=== PATIENT | female | born 1955 | race Caucasian/White ===

== ENCOUNTER 2019-04-23 08:08 | Emergency (ER) | payer BC ==
[2019-04-23] MEDS: SOD CHLORIDE 0.9% 100 ML (10:18)
[2019-04-23] MEDS: IOHEXOL 300MG/ML 150 ML BTL (10:18)
== END 2019-04-23 12:18 | disposition home or self-care (01) ==
LOC: E/R 08:08
DX: B02.29 Other postherpetic nervous system involvement (principal); I10 Essential (primary) hypertension
CPT/HCPCS: 36415; 74177; 80053; 81003; 83690; 85025; 99284-25